=== PATIENT | female | born 1945 | race Caucasian/White ===

== ENCOUNTER 2018-08-12 22:14 | Inpatient (IN) | payer MEDICARE, OTHER ==
[~2018-08-12] VITALS: Ht 160 cm; Wt 96.6 kg
[2018-08-12 22:17] VITALS: BP 143/77
[2018-08-12] MEDS ORDERED: LEXAPRO20 MG PO (22:44)
[2018-08-12] MEDS ORDERED: COZAAR 25 MG TA25 M1 PO (22:47)
[2018-08-12 22:48] LABS: HEMATOCRIT 39.9 % (37.0-47.0); HEMOGLOBIN 13.1 gm/dL (12.0-15.0); MCH 27.4 pg (26.0-34.0); MCHC 32.9 g/dL (28.0-37.0); MCV 83.2 fL (80.0-100.0); MPV 7.9 fl. (7.2-11.1); NUCLEATED RBCS 0 /100WBC; PLATELET COUNT* 215 thou/uL (150-400); RBC 4.79 mil/uL (4.20-5.00); RDW-CV 14.6 % (10.5-14.5); WBC 2.8 thou/uL (4.0-11.0)
[2018-08-12] MEDS ORDERED: PROTONIX40 M1 PO (22:48)
[2018-08-12] MEDS ORDERED: PROVIGIL 200 M200 MG PO (22:48)
[2018-08-12] MEDS ORDERED: SYNTHROID200 MCG PO (22:49)
[2018-08-12] MEDS ORDERED: MAXZIDE-25 MG1 EACH PO (22:50)
[2018-08-12] MEDS ORDERED: VITAMIN D5000 UNIT PO (22:50)
[2018-08-12 22:57] LABS: APTT 40.2 Seconds (25.0-31.3); INR 1.1; PROTIME 11.4 Seconds (9.20-11.50)
[2018-08-12 23:17] LABS: ANION GAP 14 mmol/L (7-16); BUN 32 mg/dL (7-18); CHLORIDE 103 mmol/L (98-107); CO2 25 mmol/L (21-32); SODIUM 142 mmol/L (136-145)
[2018-08-12 23:18] LABS: CALCIUM 8.9 mg/dL (8.5-10.1); CREATININE 1.9 mg/dL (0.6-1.3); GLUCOSE 204 mg/dL (70-99)
[2018-08-12 23:19] LABS: BE -1.2 mmol/L (-2 to +3); HCO3 23.2 mmol/L (22.0-26.0); PCO2 37.9 mmHg (35.0-45.0); pH 7.405 (7.340-7.450)
[2018-08-12 23:22] LABS: PO2 267.1 mmHg (75.0-100.0)
[2018-08-12 23:26] LABS: ALKALINE PHOSPHATASE 81 U/L (46-116); SGOT 27 U/L (15-37); TOTAL BILIRUBIN 0.4 mg/dL (<0.1-1.0)
[2018-08-12 23:27] LABS: ALBUMIN 3.9 g/dL (3.4-5.0)
[2018-08-12 23:35] LABS: SGPT 28 U/L (30-65)
[2018-08-13] VITALS (12 sets, daily range): BP systolic 85–113; BP diastolic 32–60
[2018-08-13 00:04] LABS: NT-PRO BRAIN NAT PEPTIDE 392 pg/mL (<300); TROPONIN-I LEVEL <0.06 ng/mL (<0.06)
[2018-08-13 00:22] LABS: ABSOLUTE LYMPHOCYTES 2.2 thou/uL (0.8-5.3); ABSOLUTE MONOCYTES 0.1 thou/uL (0.0-1.2); ABSOLUTE NEUTROPHILS 0.6 thou/uL (1.6-8.1); ANISOCYTOSIS Occasional; ATYPICAL LYMPHS 2 %; HYPOCHROMASIA 1+; PLATELET ESTIMATE ADEQUATE; TOXIC GRANULATION 1+
[2018-08-13 00:28] LABS: CK-MB MASS 2.6 ng/mL (<0.5-3.6)
--- NOTE | 2018-08-13 00:30 | NUR ---
PATIENT ABLE TO FOLLOW VERBAL COMMANDS. ABLE TO RECOGNIZE FAMILY IN ROOM AND STATE NAMES. GOES FROM BEING ABLE TO SPEAK NAMES CLEARLY TO WORD SALAD. LEGS ALSO NOTED BEING VERY RESTLESS
--- NOTE | 2018-08-13 05:28 | NUR ---
PT ARRIVED TO ICU AT 0330 FROM ED POST SEIZURE, CODE STROKE. PT TAKEN TO RADIOLOGY AT 0330 FOR VQ SCAN AND RETURNED TO ICU AT 0400. PT'S DAUGHTER AT BEDSIDE TO PROVIDE INFORMATION. PT ALERT AND ORIENTED TO PERSON, PLACE AND SITUATION. PT ANSWERS ARPPORIATELY, MOVES ALL EXTREMITIES EQUALLY. NO FACIAL DROOPING OR SLURRED SPEECH. PT DENIES NUMBNESS OR TINGLING. NO LOSS OF SENSATION. PUPILS EQUAL AND REACTIVE, NO BLURRED OR DOUBLE VISION. PT HAVING APHASIA AT TIMES. DR MCLEOD NOTIFIED OF MRI MRA RESULTS AT 0430. PT TO REMAIN NPO UNTIL CLEARED BY SPEECH.
--- NOTE | 2018-08-13 10:28 | NUR ---
PT ADMITTED FROM ER WITH HYPOGLYCEMIA. PT VERY DROWSEY. IVF INFUSING. CHRONIC AFIB ON HEART MONITOR. FERNANDEZ CATHETER PLACED. WILL MONITOR CLOSELY.
--- NOTE | 2018-08-13 15:40 | EKG ---
[place] [address] ELECTROCARDIOGRAM REPORT Name: JERRYXENIA KAELYN Room: [address] ADM IN M.R.#: [id number] Admission: 08/13/18 Attend Phys: Jeffrey Aguilar Discharge: Date of : 49 Report #: [id number] THIS REPORT FOR: //name// [facility] ED Test Date: 2018-08-12 Test Time: 22:24:16 Pat Name: XENIA EDWARDS Department: Room: [facility] Gender: F Vice President Regulatory: LORENZO : 1945 Requested By: Oswald Waters Order Number: [id number] MD: Clark Harrison Measurements Intervals [place] Rate: 97 P: 81 [place]: 194 QRS: -91 QRSD: 155 T: -9 QT: 391 QTc: 497 Interpretive Statements 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
--- NOTE | 2018-08-13 17:12 | NUR ---
PT CARE ASSMED AFTER REPORT. SR/BBB ON MONITOR. NIH Q4H. PT WITH DYSPHAGIA. GETS FRUSTRATED WHEN SHE CAN NOT FIND THE RIGHT WORDS. SEEN BY SPEECH THERAPY AND PT PASSED SWALLOW STUDY. HEART HEALTHY DIET ORDERED PER DR WHITE. UP WITH ASSIST TO BSC. NO WEAKNESS OR FACIAL DROOP NOTED. DENIES PAIN. PROGRESSING TOWARDS SOME GOALS.
[2018-08-13 22:04] LABS: URINE BLOOD NEGATIVE (Negative); URINE CLARITY CLEAR; URINE COLOR YELLOW; URINE GLUCOSE-RANDOM NEGATIVE (Negative); URINE KETONES NEGATIVE (Negative); URINE LEUKOCYTES-REFLEX TRACE (Negative); URINE NITRITE-REFLEX NEGATIVE (Negative); URINE PROTEIN NEGATIVE (Negative); URINE SPECIFIC GRAVITY 1.025 (1.005-1.030); URINE UROBILINOGEN 0.2 E.U./dl (0.2-1.0)
[2018-08-13 22:07] LABS: ICTOTEST (BILI CONFIRMATORY) Negative (Negative); URINE BILIRUBIN 1+ (Negative); URINE POTASSIUM-RANDOM 33.9 mmol/L
[2018-08-13 22:11] LABS: AMP/METHAMP Negative (Negative); BARBITURATES Negative (Negative); BENZODIAZEPINES Negative (Negative); COCAINE Negative (Negative); METHADONE Negative (Negative); OPIATES Negative (Negative); PCP Negative (Negative); THC Negative (Negative)
[2018-08-13 22:20] LABS: BACTERIA-REFLEX 1-9 Few /HPF (None Seen); SQUAMOUS >10 Many /LPF (0-3); URINE WBC-REFLEX 0-5 Rare /HPF (0-5)
[2018-08-13 22:21] LABS: CASTS None Seen /LPF (None Seen); MUCUS None Seen strn/LPF (None Seen)
[2018-08-13 22:22] LABS: CRYSTALS None Seen /LPF (None Seen); URINE RBC None Seen /HPF (0-2)
[2018-08-14] VITALS (7 sets, daily range): BP systolic 93–124; BP diastolic 36–64
--- NOTE | 2018-08-14 04:49 | NUR ---
PT AAOX4 RESP REG AND UNLABORED SKIN W/D NO ACUTE DISTRESS NOTED. NIH 3. PT NOTED THAT RIGHT ARM AND LEG HAVE DECREASED SENSATION. NO DRIFT NOTED. NO DECREASED MOVEMENT. DYSPHAGIA NOTED. AT TIMES WORSE THAN OTHERS PT HAS HAD A PEACEFUL NIHGT, HOWEVER IT IS NOTED THAT PT O2 SAT DECREASES WHILE SLEEPING, O2 INCREASED TO 3L BNC. VSS AND NO ACUTE CHANGES DURING SHIFT WILL CONTINUE TO MONITOR
[2018-08-14 04:52] LABS: CALCIUM 7.7 mg/dL (8.5-10.1); CREATININE 1.2 mg/dL (0.6-1.3); MAGNESIUM 2.4 mg/dL (1.8-2.4); POTASSIUM 4.1 mmol/L (3.5-5.1)
[2018-08-14 04:54] LABS: CHOLESTEROL 114 mg/dL (<200); HDL CHOLESTEROL 50 mg/dL (>40); LDL CHOLESTEROL 49 mg/dL (<100); TC:HDL 2.3 Ratio (Not establshd); TRIGLYCERIDE 77 mg/dL (<150); VLDL 15 mg/dL (<40)
[2018-08-14 04:55] LABS: SERUM ASSESSMENT CLEAR
--- NOTE | 2018-08-14 14:48 | 2DMMODE ---
[place] [address] 2 D/M-MODE ECHOCARDIOGRAM Name: XENIA EDWARDS Room: [address] ADM IN .R.#: [id number] Admission: 08/13/18 Attend Phys: Kevin Rico Discharge: Date of : 49 Date of Service: 08/14/18 1447 Report #: [id number] THIS REPORT FOR: //name// APPROVED REPORT Study performed: 08/14/2018 09:17:13 EXAM: Comprehensive 2D, Doppler, and color-flow Echocardiogram Patient Location: Bedside BSA: 1.99 HR: 71 bpm BP: 119/63 mmHg Other Information Study Quality: Technically Limited Indications CVA/TIA Echo Enhancing Agent Indication: Rule out Shunt Agent(s) / Amount(s) Used: Agitated Saline cc 2D Dimensions IVSd: 11.07 (7-11mm) LVOT Diam: 19.46 (18-24mm) LVDd: 38.83 mm PWd: 10.98 (7-11mm) Ascending Ao: 32.24 (22-36mm) LVDs: 26.51 (25-40mm) Aortic Root: 29.12 mm Volumes Left Atrial Volume (Systole) LA ESV Index: 17.90 mL/m2 Aortic Valve AoV Peak Brad.: 1.27 m/s AO Peak Gr.: 6.46 mmHg LVOT Max P.66 mmHg AO Mean Gr.: 3.17 mmHg LVOT Mean P.43 mmHg LVOT Max V: 0.82 m/s AO V2 VTI: 27.84 cm LVOT Mean V: 0.56 m/s DANICA (VTI): 1.79 cm2 LVOT V1 VTI: 16.73 cm Mitral Valve E/A Ratio: 1.16 [place] [address] 2 D/M-MODE ECHOCARDIOGRAM Name: XENIA EDWARDS Room: [address] IN .R.#: [id number] Admission: 08/13/18 Attend Phys: Kevin Rico Discharge: Date of : 49 Date of Service: 08/14/18 1447 Report #: [id number] MV Decel. Time: 192.69 ms MV E Max Brad.: 1.08 m/s MV PHT: 55.88 ms MVA (PHT): 3.94 cm2 TDI E/Lateral E': 10.80 E/Medial E': 9.82 Medial E' Brad.: 0.11 m/s Lateral E' Brad.: 0.10 m/s Pulmonary Valve PV Peak Brad.: 0.91 m/s PV Peak Gr.: 3.31 mmHg Tricuspid Valve RAP Estimate: 5.00 mmHg TR Peak Gr.: 14.99 mmHg RVSP: 19.99 mmHg PA Pressure: 19.99 mmHg Left Ventricle The left ventricle is normal size. There is normal LV segmental wall motion. There is normal left ventricular wall thickness. Left ventricular systolic function is normal. The left ventricular ejection fraction is within the normal range. LVEF is 60-65%. Right Ventricle The right ventricle is normal size. The right ventricular systolic function is normal. Atria The left atrium size is normal. Injection of bubbles documented no interatrial shunt. The right atrium size is normal. Aortic Valve The aortic valve is normal in structure. No aortic regurgitation is present. There is no aortic valvular stenosis. Mitral Valve The mitral valve is normal in structure. There is no mitral valve regurgitation noted. No evidence of mitral valve stenosis. Tricuspid Valve The tricuspid valve is normal in structure. Trace tricuspid regurgitation. Pulmonic Valve Pulmonic valve is not well visualized. There [place] [address] 2 D/M-MODE ECHOCARDIOGRAM Name: XENIA EDWARDS Room: [address] IN [facility].#: [id number] Admission: 08/13/18 Attend Phys: Kevin Rico Discharge: Date of : 49 Date of Service: 08/14/18 1447 Report #: [id number] regurgitation. Great Vessels The aortic root is normal in size. IVC is normal in size and collapses >50% with inspiration. Pericardium There is no pericardial effusion. <Conclusion> LVEF is 60-65%. Injection of bubbles documented no interatrial shunt. <ELECTRONICALLY SIGNED> By: Ozzie Eaton MD, [facility] 08/14/18 1447 144 144 Ozzie Eaton MD, FACC /INF
--- NOTE | 2018-08-14 17:19 | NUR ---
UP IN ROOM DENIES DISTTRESS CO COUGH WITH VAGAL RESPONSE. DYSPHAGIA CAUSING DISTRESS.
--- NOTE | 2018-08-14 17:40 | NUR ---
REPORT GIVEN TO GOLD TRANSFERING TO RM 204.
--- NOTE | 2018-08-14 17:40 | NUR ---
RECEIVED CONSULT FOR POSSIBLE REHAB ADMISSION. CONSULT HAS BEEN ACKNOWLEDGED BY VIOLET LIAISON DALIA PATEL. PATIENT ADMITTED WITH STROKE. NEUROLOGY FOLLOWING STROKE CONTINUING TO EVOLVE. PATIENT STILL IN ICU. PT/OT/ST EVALUATED PATIENT, HAS REHAB NEEDS. WILL FOLLOW ALONG TO SEE HOW PATIENT PROGRESSES ONCE MEDICALLY STABLE TO DETERMINE IF QUALIFIES FOR ACUTE REHAB. THANK YOU FOR THIS CONSULT.
--- NOTE | 2018-08-14 18:35 | NUR ---
PT TRANSFERRED TO ROOM 204 VIA WHEELCHAIR AND NURSING STAFF FROM ICU AT APPROXIMATELY 1800. REPORT RECEIVED FROM RADHA ACHARYA. PT ORIENTED TO ROOM AND CALL LIGHT. THIS RN AGREES WITH PREVIOUS INTERNAL CONTROLS CONSULTANT. PT SITTING UP IN BED HAVING DINNER. FAMILY AT BEDSIDE. PT A&0X4, DENIES ANY PAIN OR SHORTNESS OF BREATH AT THIS TIME. TRACING SR ON THE LATHE SETUP OPERATOR. ON RA SAT UPPER 90'S. PT UP WITH 1 ASSIST. MEDICATIONS PER NOV. PT REPOSITIONS SELF. HOURLY ROUNDING OBSERVED. BED IN LOW POSITION. CALL LIGHT WITHIN REACH. WILL CONTINUE PLAN OF CARE.
[2018-08-15] VITALS: BP 135/56
--- NOTE | 2018-08-15 01:15 | NUR ---
ASSUMED PT CARE AT 1930. ASSESSMENT COMPLETED CHARTED. ABLE TO MAKE NEEDS KNOWN. [facility] QSHIFT. PT UP WITH STANDBY. NO C/O PAIN OR DISCOMFORT. HAVING A HARD TIME THINKING OF THE WORDS TO SAY R/T STROKE. WILL CONTINUE TO MONITOR.
[2018-08-15 04:00] VITALS: BP 124/71
[2018-08-15 04:49] LABS: ABSOLUTE LYMPHOCYTES 0.4 thou/uL (0.8-5.3); ABSOLUTE MONOCYTES 0.1 thou/uL (0.0-1.2); ABSOLUTE NEUTROPHILS 2.1 thou/uL (1.6-8.1); BASOPHILS 0.1 %; HEMATOCRIT 33.5 % (37.0-47.0); HEMOGLOBIN 11.4 gm/dL (12.0-15.0); LYMPHOCYTES 16.8 %; MCH 27.8 pg (26.0-34.0); MCHC 33.9 g/dL (28.0-37.0); MCV 82.2 fL (80.0-100.0); MONOCYTES 2.8 %; MPV 8.5 fl. (7.2-11.1); NUCLEATED RBCS 0 /100WBC; PLATELET COUNT* 149 thou/uL (150-400); POLYS 80.3 %; RBC 4.08 mil/uL (4.20-5.00); RDW-CV 14.7 % (10.5-14.5); WBC 2.6 thou/uL (4.0-11.0)
--- NOTE | 2018-08-15 07:58 | CON ---
[address] [address] CONSULTATION Name: XENIA EDWARDS Room: [address] IN M.R.#: [id number] Admission: 08/13/18 Attend Phys: Jeffrey Aguilar Discharge: Date of : 49 Report #: [id number] THIS REPORT FOR: //name// CC: Dr. Aaron Guerra MD DATE OF SERVICE: 08/14/2018 PULMONARY CONSULTATION Location: She is located in the ICU bed 6. She may be transferred up to PCU, but I saw her in ICU 6. ATTENDING PHYSICIAN: Dr. Riggs. INDICATION FOR CONSULTATION: Cough, shortness of air, interstitial lung disease. HISTORY OF PRESENT ILLNESS: The patient is a 73-year-old female, prior smoker with multiple medical problems. She was admitted to the hospital yesterday because of a seizure, appeared to involve her right arm. She had a left-sided MCA stroke and now, she has expressive aphasia. She has been coughing for about the last 6 months, it has been a dry cough. Dr. Guerra has worked her up. We are awaiting records from [facility]. There is a dry cough that occurs day and night. She has been on antireflux regimen. She denies any sinus drainage. I do not think she has had a bronchoscopy with brushings or washings. She has not had an open lung biopsy as far as I can ascertain. She has some mild interstitial lung disease on her chest x-ray and CAT scan of her chest. She is a prior smoker of 20 pack years, but she quit, I believe in 2007. History is a little bit difficult to obtain because of her expressive aphasia and she was somewhat frustrated with this. PAST MEDICAL HISTORY: She has a history of hypertension. She has a history of seizure and hyperlipidemia. She does take multiple psychiatric medicines for unknown etiology. No history of COPD. There is a history of obstructive sleep apnea, which was in the mild range on a sleep study interpreted by Dr. Kam Bain from ENT on 10/27/2003 at [facility]. She had 50 total apnea and hypopneas. Her apnea hypopnea index was 7 events per hour. She had some mild O2 desaturation down to 80% and she was placed on CPAP at 9 cm and seemed to have improved. She also had some restless leg syndrome. There is no mention of narcolepsy at that time, although there is a questionable history of narcolepsy in the past, at least [place] [address] CONSULTATION Name: XENIA EDWARDS Room: [address] IN M.R.#: [id number] Admission: 08/13/18 Attend Phys: Jeffrey Aguilar Discharge: Date of : 49 Report #: [id number] ALLERGIES: She has no known medical allergies. CURRENT MEDICATIONS: At this time includes Solu-Medrol 40 mg IV q. 8 hours, Pepcid 20 mg b.i.d., azithromycin 250 mg daily, Keppra 500 mg p.o. b.i.d., Lovenox 30 mg daily, atorvastatin 40 mg daily. She is on some DuoNeb treatments 4 times a day and also Maxzide 1 tablet daily. Of note, she is on modafinil or Provigil 200 mg once daily in the morning. Also, on losartan 50 mg daily for hypertension, citalopram 20 mg daily, also on ceftriaxone 1 g daily, aspirin 325 mg daily and levothyroxine 0.2 mg daily. FAMILY HISTORY: Negative for premature cardiopulmonary disease. SOCIAL HISTORY: She lives by herself. She has a supportive daughter who is helpful in her care. She denies drinking alcohol or have any illicit drug use. She has a 20-qexr-rybp history of smoking and again, I believe she quit smoking in 2007, although that date is somewhat in question because of her expressive aphasia. REVIEW OF SYSTEMS: A 14-point review of systems reviewed and negative except for pertinent positives noted as above. PHYSICAL EXAMINATION: GENERAL: A 73-year-old female who is alert and oriented. She has difficulty talking to me again because of her expressive aphasia and she is searching for words, which frustrates her. She does have a dry cough throughout the exam. VITAL SIGNS: In the intensive care unit, blood pressure is 130/53 without being on any pressors, heart rate 72, respirations are 16-20 and nonlabored and temperature is afebrile. She is 5 feet 4 inches tall, weight is 97 kilograms, BMI is 38, saturation on 4 liters was 97%. HEENT: Unremarkable. Pharynx is clear. Sinuses nontender. NECK: Supple without nodes. CHEST: Reveals a few bibasilar crackles, left greater than right. No expiratory wheeze noted. CARDIOVASCULAR: Shows regular rate and rhythm with a heart rate of 72. ABDOMEN: Soft, obese without masses or megaly. EXTREMITIES: No cyanosis, clubbing or edema. NEUROLOGIC: She is dysarthric and has an expressive aphasia. Tongue thrust is good. She can cough and protect her airway and she has minimal right arm weakness. Otherwise, neurologic exam is nonfocal. She moves all extremities well to exam. LABORATORY DATA: From yesterday, hemoglobin was 13, white count is 2800 and she has 76% lymphocytes and absolute neutrophils are low at 600. Today, sodium is 139, potassium is 4.1, bicarbonate is 25, BUN is 25, creatinine is 1.2, GFR is 44, calcium 7.7, magnesium is 2.4. LFT[place] [address] CONSULTATION Name: JERRYXENIANathan ART Room: [address] IN ..#: [id number] Admission: 08/13/18 Attend Phys: Jeffrey Aguilar Discharge: Date of : 49 Report #: [id number] panel was unremarkable and vitamin B12 was 921. Urine tox screen was negative and coags were within normal limits. Chest x-ray and CT of the chest shows minimal lower lobe interstitial infiltrates. I am not as impressed as the radiologist was with the findings on the CAT scan. She has some lower lobe interstitial infiltrates. There is no septal thickening. There is no honeycombing to my review. Heart size was normal. No pulmonary artery hypertension noted at least on the CAT scan. Otherwise, the upper lung fowler appear relatively normal. IMPRESSION: Cough, etiology unclear, may have some early interstitial lung disease. Again, most likely idiopathic, could be usual interstitial pneumonia. I do not think it is drug related. No definite evidence of esophageal reflux. No sinus drainage noted. She is a remote smoker. 1. Seizures with stroke, left-sided middle cerebral artery noted on MRI of the brain, appears to have expressive aphasia at this time. 2. Hypertension. 3. Sleep disordered breathing and mild obstructive sleep apnea, could also have restless leg syndrome, at least has daytime hypersomnolence. I am not sure she has narcolepsy or not. PLAN: We will treat with some oral bronchodilators, IV steroids, have just been added with some Tessalon Perles and montelukast and see if we can suppress her cough a little bit. At some point in time, she may need outpatient fiberoptic bronchoscopy for persistent lower lobe infiltrates. Also, further workup as an outpatient would include full PFTs. Possibly room air exercise oximetry and again, bronchoscopy with possible transbronchial biopsy. I do not think she warrants an open lung biopsy at this time. We will continue with steroids, probably needs 2-3 weeks with a taper, so we can get her cough under control. May need a repeat sleep study, was checked with Dr. Guerra sooner. The last sleep study was done the one I find at [facility] was in 2003 and she may have had one sooner since then, but certainly, a repeat sleep study and possibly an MSLT may be indicated to see if she truly has narcolepsy or just some daytime hypersomnolence. We will keep on with Provigil at this time. Add oral and inhaled bronchodilators and see if can keep her cough under control. Thanks again for allowing us to participate in this lady's care. We will follow up along with you while she is in the hospital. <ELECTRONICALLY SIGNED> By: Cyrus Valdes MD 08/15/18 0758 1028 [id number] Valdes MD /liudmila
[2018-08-15 08:00] VITALS: BP 136/52
[2018-08-15 08:09] LABS: GLYCOHEMOGLOBIN (HGB A1C) 5.6 % (4.8-5.6)
--- NOTE | 2018-08-15 10:11 | NUR ---
Mental Health Coordinator Note: Met with patient and daughter Roderick this am. Discussed stroke program, provided emotional support, patient able to express self, does have aphasia. Patient plans to go to in patient rehab if qualifies. Agreed to [facility] Stroke Navigation post acute discharge.
--- NOTE | 2018-08-15 11:15 | NUR ---
ASSUMED CARE OF PT AT 0730. PT RESTING IN BED WAITING FOR BREAKFAST. PT A&0X4, DENIES ANY PAIN OR SHORTNESS OF BREATH. PT GETS FRUSTRATED WHEN UNABLE TO THINK OF WORDS, DYSARTHRIA NOTED. PT TRACING SB ON THE TELEMARKETER SUPERVISOR. PT ON RA SAT UPPER 90'S. PT WEARS 2L NC AT NOC. PT UP WITH 1 ASSIST. NIH COMPLETED. PT SCORING 3. REFER TO RESULTS. PT GOAL FOR TODAY IS REHAB CONSULT, PT, OT AND ST, AND INCREASE ACTIVITY. AM ASSESSMENT CHARTED. MEDICATIONS PER NOV. PT REPOSITIONS SELF WITH REMINDERS. HOURLY ROUNDING OBSERVED. BED IN LOW POSITION. CALL LIGHT WITHIN REACH. FALL PRECAUTIONS IN PLACE. WILL CONTINUE PLAN OF CARE.
--- NOTE | 2018-08-15 11:46 | NUR ---
Pt is A&O. Minor difficulty with word finding. Dtr in room at bedside. Pt is normally active and independent. Pt recently moved in to her own apartment at [facility]. Pt is normally able to prepare her meals, clean and drive. Pt has a cpap. No hx of HH or SNF. Acute rehab following Pt, Pt wants to dc to acute rehab at discharge. Following.
[2018-08-15 12:00] VITALS: BP 102/51
[2018-08-15 16:33] VITALS: BP 115/44
--- NOTE | 2018-08-15 18:37 | NUR ---
PT PROGRESSING TOWARDS GOALS. PT WORKED WITH PT AND OT TODAY- TOLERATED WELL. PT SHOWERED WITH ASSIST OF OT. REHAB CONSULT IN PLACE- PROBABLE DISCHARGE TO REHAB TOMORROW 08/16. CONTINUES TO HAVE EXPRESSIVE APHASIA AND GETS FRUSTRATED AT TIMES. CONTINUES TO TRACE SB/SR ON THE MIXING MACHINE OPERATOR. ON RA SAT UPPER 90'S. DENIES ANY PAIN OR SHORTNESS OF BREATH. PT UP WITH 1 ASSIST TO BATHROOM. UNSTEADY AT TIMES. PT HAD BLOODY NOSE THIS EVENING- RELIEVED WITH COLD COMPRESS AND ICE PACK. PT HAS COUGH THAT HAS WORSENED THROUGHOUT AFTERNOON. PT BROTHER CAME OUT TO DESK AT APPROXIMATELY 1530 AND STATED PT HAD SEIZURE AFTER COUGHING. NURSE ENTERED ROOM, PT SITTING IN THE CHAIR STATING SHE HAD A COUGHING SPELL. PT BROTHER SAID SEIZURE ACTIVITY LASTED 4 SECONDS AFTER PT COUGHED. NURSING DID NOT WITNESS. WILL CONTINUE TO MONITOR CLOSELY. DR PETERSON HERE THIS AFTERNOON AND ORDERS RECEIVED TO ANISA NAVARRO. MEDICAITONS PER NOV. PT REPOSITIONS SELF WITH REMINDERS. HOURLY ROUNDING OBSERVED. BED IN LOW POSITION. BED ALARM IN PLACE. FALL PRECAUTIONS IN PLACE. CALL LIGHT WITHIN REACH. WILL CONTINUE PLAN OF CARE.
[2018-08-15 20:20] VITALS: BP 111/44
[2018-08-16] VITALS: BP 99/42
[2018-08-16 04:00] VITALS: BP 108/48
--- NOTE | 2018-08-16 05:20 | NUR ---
PT CARE ASUMED AT 1930. SAT MAINTAINED IN RA. CONNECTED TO O2 AT 2L BECAUSE OF SLEEP APNEA. CALL LIGHT WITHIN REACH AND BED IN LOW POSITION. PT HAD HEMOPTYSIS 1 EPISODE. HAD EXCESSIVE COUGHING, MEDICATION GIVEN PER EMAR. HOURLY ROUNDING DONE FOR PT SAFETY. DENIES ANY CHEST PAIN AND SOB.
[2018-08-16 09:00] VITALS: BP 131/49
[2018-08-16 12:17] VITALS: BP 116/73
--- NOTE | 2018-08-16 12:53 | NUR ---
ASSUMED PT CARE AT 0700 PT IS ALERT AND ORIENTED X 4 PT DENIES PAIN OR SOA ON RA, PT IS UP SBA PT IS NOT A FALL RISK, PT IS SR 1ST ON THE MONITOR, PT STABLE TO DISCAHRGE TO REHAB WHICH HOSPITALIST HAS CLEARED, PT IS PLESANT AND COOPERATIVE WILL CONTINUE TO MONITOR
[2018-08-16] MEDS ORDERED: SINGULAIR 10 MG10 M1 PO (13:53)
[2018-08-16] MEDS ORDERED: ALBUTEROL SULFAT2 MG PO (13:53)
[2018-08-16] MEDS ORDERED: IPRAT-ALBUT 0.5-3 ML INH (13:53)
[2018-08-16] MEDS ORDERED: BENZONATATE100 MG PO (13:53)
[2018-08-16] MEDS ORDERED: LEVAQUIN 500 M500 M2 PO (13:53)
[2018-08-16] MEDS ORDERED: ROBITUSSIN AC Liquid PO (13:53)
[2018-08-16] MEDS ORDERED: ATORVASTATIN CA40 MG PO (13:53)
[2018-08-16] MEDS ORDERED: ASA5UEC PO (13:53)
[2018-08-16] MEDS ORDERED: PREDNISONE 10 M10 MG PO (13:53)
[2018-08-16] MEDS ORDERED: MUCINEX600 MG PO (13:53)
[2018-08-16 14:35] VITALS: BP 116/73
--- NOTE | 2018-08-16 15:21 | NUR ---
Pt discharging to acute rehab today.
[2018-08-16 16:08] VITALS: BP 113/46
--- NOTE | 2018-08-18 10:58 | CON ---
[address] [address] CONSULTATION Name: XENIA EDWARDS Room: [address] IN M.R.#: [id number] Admission: 08/13/18 Attend Phys: Gilbert Aguilar Discharge: 08/16/18 Date of : 49 Report #: [id number] THIS REPORT FOR: //name// CC: Kevin Rico Naman Morgangilbert DATE OF SERVICE: 08/13/2018 HISTORY OF PRESENT ILLNESS: This is a 73-year-old female patient who was evaluated by me multiple times since last night when I was called by Emergency Room physician, Dr. Waters, and I had multiple conversations with the patient's daughter and the nurses looking after this patient. The history I get from the daughter and the Emergency Room physician, Dr. Waters, is that the patient was recently admitted to [facility]. The way I understood from the patient's daughter, the patient had grand mal seizure. It is not clear whether there was any focality that time or not. She was taken to [facility]. According to daughter, they did extensive workup in this patient. I do not have any record from [facility] and we tried to get it last night and we were not able to get that, but the daughter does indicate that the patient did have an MRI. She does not know if she had an EEG. They did not determine any cause for her seizures. The way I understand from her, the diagnosis was not clear for this late onset seizure. Today, this patient was moving. About 8:00 the daughter came to this patient's new place. The patient was fine that time. Somewhere between 8:00 and 9:30, the patient indicated that she was not feeling well. It was not clear why she was not feeling well. She wanted to go outside and she did. Then, she started sweating and later on had a grand mal seizure. Initially, she became unresponsive with this grand mal seizure, but subsequently she became more responsive. Description is typical for a grand mal seizure. I tried to see if the seizure started with some focality and the daughter was not able to tell for sure whether there was any focality there or not. She was confused. As I understand from Dr. Waters, she came to the emergency room and she was not saturating well. Her oxygen saturation was only 88%. She was yelling to the EMS when they went there that she cannot breathe and from all indication, it looks like she had pretty significant respiratory difficulty that time. She was brought to Emergency Room and was initially worked up by Dr. Waters. He did a CT scan of the head in this patient after stabilizing her breathing. As I understand from him, the CT got delayed because the patient was hypoxic. After CT report, I was called to do a Neurology consult. I talked to Dr. Waters on the phone and it looks like the patient was [place] [address] CONSULTATION Name: XENIA EDWARDS Room: [address] M.R.#: [id number] Admission: 08/13/18 Attend Phys: Gilbert Aguilar Discharge: 08/16/18 Date of : 49 Report #: [id number] was improving. Because of a very recent seizure, his impression was that she was postictal from her seizure, especially because she had a grand mal seizure just before coming to the emergency room and it looks like she was also hypoxic. I suggested further workup in this patient. Workup was difficult because her creatinine was 1.9 and BUN was 32 and they were both elevated. Because of that, CT angiogram of the head and neck was awarded and we proceeded with MRI of the brain and MRA of the head and neck. That was completed somewhere around 2:30 and I looked at the films and to me it looked like the patient had a CVA in the left cerebral hemisphere, but the vessels were patent in this patient. The official report came this morning and they have pretty much the same impression. REVIEW OF SYSTEMS: Indicate that this patient was hypotensive. There was virtually no reactive hypertension in this patient secondary to stroke and in fact her blood pressure continued to be low. She was also hypoxic, which probably aggravated her stroke symptoms. She has a history of seizures. She takes multiple psychiatric medications and I need to talk to the patient's daughter again more about that. A 14-point review of system was carried out and it was mostly positive for a seizure recently for which she was in the [facility] and recurrence of the same symptoms on the day of admission. The symptoms were very similar, but apparently the initial workup was negative. FAMILY HISTORY: Unremarkable. SOCIAL HISTORY: She has a very supporting daughter and I talked to her in great detail and had numerous conversations with her. PHYSICAL EXAMINATION: Indicate that I have seen her multiple times. Virtually, all the examination she has been alert. She is responsive. She can comprehend most of the things, but her expression is very poor. She will start with some word but then she will get confused and the word will not come out. She had very strong expressive aphasia. That makes the rest of the examinations pretty difficult, but I cannot have a good examination of her hemianopsia because of that. I think she can move both sides of the face and I did not see any gross facial palsy. She moves both upper and lower extremities. I tried to do the position sense in this patient. She does not understand the instruction. I did not document any atrial fibrillation. She did have respiratory difficulty, which is much better than what she came in. IMPRESSION: 1. Left hemispheric cerebrovascular accident. The patient's presentation is very unusual. She presented with a grand mal seizure a month ago for which the workup was negative and another grand mal seizure on the day of admission. The symptom of the grand mal seizures started anywhere between 8:00-9:30 p.m. on the day of admission. Because of the recent history of seizure for which workup was negative and the patient having the exact same symptom, it was not possible to tell how much of her symptoms were secondary to postictal period [place] [address] CONSULTATION Name: JERRYXENIA Room: [address] IN [facility].#: [id number] Admission: 08/13/18 Attend Phys: Gilbert Aguilar Discharge: 08/16/18 Date of : 49 Report #: [id number] any is because of stroke or even if she had a stroke. Situation became clear only after the MRI. Furthermore, we cannot be certain that she did not have a stroke a month ago because we do not have her prior records and even if the MRI is negative, MRI can sometime be negative in the stroke since it was not possible to tell how much symptoms are because of the patient's seizures and how much if any is because of stroke and the patient could have had a stroke a month ago when she was in [facility]. ER doctor did not give TPA and that is reasonable. When I saw the patient, she was outside the TPA window, but I also wanted to make sure that the patient is not any intervention candidate. So we did do workup in a hurry and the patient was not any intervention candidate. Therefore, as far as acute management is concerned, this patient because of the above circumstances did not qualify for TPA or for any other acute intervention can be done. Main emphasis should be to more thoroughly search for any cause for her stroke, so that secondary stroke prophylaxis can be initiated. 2. Hypoxia at presentation. That is of unknown etiology, but any hypoxia to the stroke penumbra carries bad prognosis, but stroke penumbra is very sensitive to any hypoxia. 3. Virtually no reactive hypertension and in fact the patient's blood pressure continued to be very low and we have to increase the blood pressure by giving her a lot of fluids. Lack of reactive hypertension is another bad prognostic sign for recovery. Therefore, it looks like that unfortunately, this patient does have multiple other bad prognostic sign, especially hypoxia at presentation, virtually no reactive hypertension and she also had a seizure at onset and seizure prior to this episode about a month ago and you may have to assume that she may have had a small stroke even that time which was missed by the workup. 4. History of sleep apnea and narcolepsy that need to be further addressed later on. 5. Any underlying etiology which can cause hypotension need to be excluded. RECOMMENDATIONS: 1. The patient was admitted to ICU and I think we need to continue ICU management, but to make sure that oxygen saturation is maintained and we can increase the blood pressure as much as we can. I thought about giving this patient vasopressor, but typically that is not what is done in the stroke and typically the aim is to keep her blood pressure high by giving her fluid. 2. We were able to get Speech Therapy here today. Nurses called me and indicated that they have cleared her for swallowing. We should continue to feed her. 3. She will need extensive workup to look for any source of embolization from the heart. We will await echo to see if there is any need to do ARIELLE. She will need prolonged monitoring to look for atrial fibrillation, especially because there was seizure at the onset of this stroke and she had another seizure and may have had another stroke a month ago. 4. Her sleep apnea needs to be addressed. It is an independent risk factor for stroke, but combination of sleep apnea and narcolepsy is rare, [place] [address] CONSULTATION Name: JERRYXENIA HALLE Room: [address] [place] .R.#: [id number] Admission: 08/13/18 Attend Phys: Gilbert Aguilar Discharge: 08/16/18 Date of : 49 Report #: [id number] be addressed as an outpatient. I have left [place] and nurses tell me that they got the record from [facility] after I left. We will try to review that. I will review with the nurses sandra and Dr. Decker will take over the service in the morning and she will review, but she just need the whole workup again and looks like she has 2 seizures and we are going to go ahead and give her Keppra and extensively look for any cardioembolic source for her stroke. A total of more than 50 minutes of time was spent taking care of this patient today and last night and majority of that time was spent counseling the patient's daughter on multiple occasions and coordinating her care by talking to multiple other healthcare professionals. <ELECTRONICALLY SIGNED> By: Harry Walker MD 08/18/18 [id number] Walker MD /nt
== END 2018-08-16 16:40 | DRG 64 ==
LOC: M.ERS 22:14 → M.ICU 08-13 00:53 → M.2W 08-13 00:53 → M.TBA-ER 08-13 00:53 → M.2W 08-13 00:53 → M.ICU 08-13 03:06 → M.2W 08-14 17:58
PROVIDERS: Emergency Medicine Emergency Medical Services; Internal Medicine; Internal Medicine Pulmonary Disease; Psychiatry & Neurology Neuromuscular Medicine; ADMIT Internal Medicine
DX: I63.412 Cerebral infarction due to embolism of left middle cerebral artery (principal); N17.0 Acute kidney failure with tubular necrosis; G81.91 Hemiplegia, unspecified affecting right dominant side; D47.02 Systemic mastocytosis; I10 Essential (primary) hypertension; E78.5 Hyperlipidemia, unspecified; G25.81 Restless legs syndrome; G47.33 Obstructive sleep apnea (adult) (pediatric); R47.01 Aphasia; E87.6 Hypokalemia; I73.9 Peripheral vascular disease, unspecified; G47.00 Insomnia, unspecified; J84.89 Other specified interstitial pulmonary diseases; K21.9 Gastro-esophageal reflux disease without esophagitis; F32.9 Major depressive disorder, single episode, unspecified; E89.0 Postprocedural hypothyroidism; Z85.850 Personal history of malignant neoplasm of thyroid; Z98.42 Cataract extraction status, left eye; Z98.41 Cataract extraction status, right eye; Z90.49 Acquired absence of other specified parts of digestive tract; Z87.891 Personal history of nicotine dependence; Z79.82 Long term (current) use of aspirin; Z79.899 Other long term (current) drug therapy

== ENCOUNTER 2018-08-16 14:30 | Inpatient (IN) | payer MEDICARE, OTHER ==
[~2018-08-16] VITALS: Ht 162.6 cm; Wt 96.2 kg
[~2018-08-16 14:30] MED LIST: ALBUTEROL SULFAT2 MG PO; ASA5UEC PO; ATORVASTATIN CA40 MG PO; BENZONATATE100 MG PO; COZAAR 25 MG TA25 M1 PO; IPRAT-ALBUT 0.5-3 ML INH; LEVAQUIN 500 M500 M2 PO; LEXAPRO20 MG PO; MAXZIDE-25 MG1 EACH PO; MUCINEX600 MG PO; PREDNISONE 10 M10 MG PO; PROTONIX40 M1 PO; PROVIGIL 200 M200 MG PO; ROBITUSSIN AC Liquid PO; SINGULAIR 10 MG10 M1 PO; SYNTHROID200 MCG PO; VITAMIN D5000 UNIT PO
[2018-08-16 17:00] VITALS: BP 119/45
--- NOTE | 2018-08-16 18:52 | NUR ---
73 YEAR OLD FEMALE ADMITTED TO ROOM 325 WITH DX OF LEFT MCA CVA. PT ARRIVED IN A WHEELCHAIR FROM ROOM 204 IN THE HOSPITAL. PT TRANSFERRED TO BED WITH STAND BY ASSISTANCE. PT ORIENTED TO ROOM, CALL LIGHT AND BED CONTROLS, INSTRUCTED TO CALL FOR ASSISTANCE BEFORE GETIING UP. ADMISSION HX AND ASSESSMENT COMPLETED. PT STATES HER ONLY RESIDUAL SYMPTOM HAS BEEN SOME WORD FINDING AND APHASIA. NO ACUTE DISTRESS AT THIS TIME.
[2018-08-16 20:17] VITALS: BP 148/71
--- NOTE | 2018-08-16 21:50 | NUR ---
SITTING UP IN BED VISITING WITH A FEMALE VISITOR. PATIENT ASKED FOR MELATONIN. INFORMED PATIENT THAT IT WASN'T ORDERED BUT THE DR. WOULD BE CALLED TO GET THE ORDER. PATIENT COULDN'T UNDERSTAND WHY THE DR. HAD TO BE CALLED JUST FOR HER TO BE ABLE TO TAKE MELATONIN. THE MELATONIN WAS ORDERED AND GIVEN TO THE PATIENT. TOOK MEDICATIONS WHOLE WITH WATER. PATIENT HAD CALMED DOWN BY THE TIME SHE RECEIVED THE MELATONIN AND WAS MUCH MORE PLEASANT. SNACK PROVIDED.
[2018-08-17 04:12] LABS: ABSOLUTE LYMPHOCYTES 1.4 thou/uL (0.8-5.3); ABSOLUTE MONOCYTES 0.7 thou/uL (0.0-1.2); ABSOLUTE NEUTROPHILS 5.3 thou/uL (1.6-8.1); BASOPHILS 0.2 %; EOSINOPHILS 0.1 %; HEMATOCRIT 34.5 % (37.0-47.0); HEMOGLOBIN 11.9 gm/dL (12.0-15.0); LYMPHOCYTES 18.5 %; MCH 27.9 pg (26.0-34.0); MCHC 34.3 g/dL (28.0-37.0); MCV 81.3 fL (80.0-100.0); MONOCYTES 9.1 %; MPV 8.4 fl. (7.2-11.1); NUCLEATED RBCS 0 /100WBC; PLATELET COUNT* 173 thou/uL (150-400); POLYS 72.1 %; RBC 4.25 mil/uL (4.20-5.00); RDW-CV 14.8 % (10.5-14.5); WBC 7.4 thou/uL (4.0-11.0)
[2018-08-17 04:25] LABS: CALCIUM 9.4 mg/dL (8.5-10.1); POTASSIUM 4.4 mmol/L (3.5-5.1)
--- NOTE | 2018-08-17 05:51 | NUR ---
RESTED QUIETLY. NO COMPLAINTS VOICED. HOURLY ROUNDING IN PROGRESS.
[2018-08-17 08:00] VITALS: BP 127/55
[2018-08-17 09:33] VITALS: BP 127/55
--- NOTE | 2018-08-17 13:16 | NUR ---
Nutrition: Pt assessed for Rehab admit s/p CVA. Albumin 3.9. Eating 100% of Heart Healthy diet. Labs/RX/Hx noted. Wt: 216#. RN stated no nutrition concerns for pt. Low risk.. Will follow weekly.
--- NOTE | 2018-08-17 13:40 | NUR ---
SW met with pt to complete initial assessment, introduce self, and SW role. Pt alert, oriented, pleasant, talkative. Pt lived for a while with her sister until her sister moved back to [place]. Then pt lived with her dtr Dorie and just moved to an apt in [place] an lived there for one night prior to stroke. Pt goal to be able to live in apt alone again at dc but said her dtr would be available to assist if needed. PT came in to work with pt, SW to continue to assess and follow to assist with safe dc planning.
--- NOTE | 2018-08-17 18:55 | NUR ---
AM ASSESSMENT AND VITAL SIGNS COMPLETED DOCUMENTED. PT HAS BEEN PLEASANT AND COOPERATIVE BUT FORGETS TO CALL FOR ASSISTANCE AT TIMES. FALL PRECAUTIONS AND HOURLY ROUNDING CONTINUE. PT IS AMBULATORY WITH A WALKER, STEADY GAIT. NO ACUTE DISTRESS AT THIS TIME.
[2018-08-17 20:09] VITALS: BP 138/50
--- NOTE | 2018-08-18 00:26 | NUR ---
ASSUMED CARE AT 1930. PATIENT RESTING IN BED WATCHING TV. UP WITH SBA, GAIT BELT. REFUSES WALKER. DOES SOME FURNATURE WALKING. TAKES MEDS WHOLE WITH WATER. VOIDS PER TOILET, DOES OWN CARES. STATES SINCE STROKE SHE NEEDS TO WAIT A LITTLE TO COMPLETELY VOID. O2 2L/NC APPLIED AT HS. PATIENT HAS A HX OF SLEEP APNEA AND DOES NOT USE CPAP. TOOK MELATONIN AT HS. BED ALARM ON. CALL LITE IN REACH. HOURLY ROUNDS CONTINUE.
--- NOTE | 2018-08-18 05:23 | NUR ---
SLEPT NOST OF THE SHIFT. DID GET UP ONCE TO VOID. NO C/O PAIN. HOURLY ROUNDS CONTINUE. CALL LITE IN REACH. BED ALARM ON.
[2018-08-18 08:08] VITALS: BP 127/82
--- NOTE | 2018-08-18 18:11 | NUR ---
ASSUMMED CARE OF PT AT 0730, PT ALERT AND ORIENTED, TRANSFERS WITH ASSIST OF 1,GB, AMBULATES TO DININGROOM, WORD FINDING DIFFICULTIES, PT HAS FREQUENT DRY COUGH, MEDICATED PER ORDERS, CXR DONE, DENIES PAIN, TAKING FOOD AND FLUIDS WELL, VOID PER TOILET, PARTICIPATED IN ALL THERAPIES, HOURLY ROUNDING COMPLETED, ASSESSMENT COMPLETE, WILL CONTINUE TO MONITOR.
[2018-08-18 20:08] VITALS: BP 121/58
--- NOTE | 2018-08-19 01:31 | NUR ---
ASSUMED CARE @ 1936-08/18-TUESDAY.SITS SIDE OF BED VISITING W/ DAUGHTER. HOB UP WHEN IN BED.SIDERAILS X2 UP PER-PT'S REQUEST.BED ALARM PUT ON @ 2199.PRN MELATONIN 10 MG ORAL GIVEN @ 2215 PER PT'S REQUEST.HAS DECREASED SENSATION RIGHT UE & RIGHT LE.O2 2L/NC ON @ 2250-FOR NIGHT USE.ON HOURLY ROUNDS.AGENCY DIRECTOR DOING ODD HOUR ROUNDS.
--- NOTE | 2018-08-19 05:30 | NUR ---
SLEPT LATE @ -08/19-SAT & SLEPT GOOD ALL NIGHT.TURNS SELF @ NIGHT.BRP X1 W/ SBA.TOOK ALL BLAS.ICE CREAM HS SNACK.
[2018-08-19 08:00] VITALS: BP 129/56
[2018-08-19 20:00] VITALS: BP 105/51
--- NOTE | 2018-08-20 01:39 | NUR ---
ASSUMED CARE @ 1919-08/19-SAT.AWAKE IN BED W/ DAUGHTER VISITING @ THIS TIME. BED ALARM PUT ON @ 1949.SBA FOR ALL TRANSFERS & TOILETING.DOES NOT USED WALKER.PER PATIENT-USED WALKER ONLY FIRST DAY IN REHAB.PRN MELATONIN 10 MG ORAL GIVEN @ 2139-PER PT'S REQUEST.O2 @ 2L/NC PUT ON PATIENT @ 2140-FOR NIGHT USE.ON HOURLY ROUNDS.YARDER DOING ODD HOUR ROUNDS.
--- NOTE | 2018-08-20 07:31 | NUR ---
SLEPT LATE SINCE 0000-08/20-TUESDAY & SLEPT GOOD ALL NIGHT.TURNS SELF @ NIGHT. ONCE @ 0200-FOUND O2 OFF & PUT BACK.BRP W/ SBA X2.TOOK ALL [place] ICE CREAM HS SNACK.HAD SMALL AMOUNT NOSE BLEEDING @ 0630 AFTER BLOWING NOSE.PATIENT PINCHED NOSE TO PUT PRESSURE.AT 0630-BLEEDING STOPPED.
[2018-08-20 07:50] VITALS: BP 105/43
--- NOTE | 2018-08-20 18:17 | NUR ---
AM ASSESSMENT AND VITAL SIGNS COMPLETED DOCUMENTED. PT SHOWERED THIS AM, AMBULATES WITH A STEADY GAIT AND DENIES DISCOMFORT. PT IS HAVING LESS TROUBLE WITH WORD FINDING AND IS ABLE TO INTERACT WELL WITH OTHERS IN THE DINING ROOM. PT's SON FROM [place] WAS HERE FOR A LONG VISIT TODAY. HOURLY ROUNDING AND FALL PRECAUTIONS IN PLACE.
[2018-08-20 20:00] VITALS: BP 136/48
--- NOTE | 2018-08-21 01:04 | NUR ---
ASSUMED CARE @ 1924-08/20-TUESDAY.AWAKE IN BED W/ HOB UP.ON HER SMART PHONE @ THIS TIME.BED ALARM PUT ON @ 1924.PRN MELATONIN 10 MG ORAL GIVEN @ 2119- PER PT'S REQUEST.LAST BM-08/186-[id number] X2.REQUESTED PRN COLACE & GIVEN @ 2125.PER PATIENT-RESP THERAPIST THREW O2 TUBING SINCE SHE DOES NOT NEED IT ANYMORE FOR NIGHT USE.INFORMED PATIENT THAT IF PATIENT HAS C PAP @ HOME BUT C PAP IS NOT HERE IN HOSP-THAT SHE HAS TO USE O2 @ NIGHT.PATIENT CLAIMS ALSO THAT SHE DOES NOT USE C PAP REGULARLY @ HOME.ON HOURLY ROUNDS.LOCKER ROOM CLERK DOING ODD HOUR ROUNDS.TURNS SELF @ NIGHT.
--- NOTE | 2018-08-21 05:34 | NUR ---
SLEPT LATE SINCE -08/21-TUESDAY.SLEPT GOOD ALL NIGHT.BRP W/ SBA X2.DOES NOT USE WALKER-STEADY.TOOK ALL BLAS.ICE CREAM HS SNACK.NO BM YET FROM [facility] TAKEN @ HS.
[2018-08-21 07:43] VITALS: BP 124/60
--- NOTE | 2018-08-21 16:01 | NUR ---
ASSUMMED CARE OF PT AT 0730, PT ALERT AND ORIENTED, PT TRANSFERS WITH SBA AND GB, PT DENIES PAIN BUT STATES HAS DULLNESS FEELING IN RIGHT ARM AND LEG BUT FEELS IT IS GETTING BETTER. PT STATES HER COUGH IS IMPROVING MEDICATED PER ORDER, NO BM SINCE TUESDAY, WILL OFFER MOM THIS PM, TAKING FOOD AND FLUIDS WELL, NO NAUSEA, AMBULATED TO DININGROOM FOR LUNCH, PARTICIPATED IN ALL THERAPIES, HOURLY ROUNDING COMPLETED, ASSESSMENT COMPLETE WILL CONTINUE TO MONITOR.
[2018-08-21 20:00] VITALS: BP 112/61
--- NOTE | 2018-08-22 00:25 | NUR ---
ASSUMED CARE AT 1930. PATIENT RESTING IN BED. TURNS SELF EASILY IN BED. UP WITH SBA, GAIT BELT. TAK[place] [address]/21. NO C/O PAIN. ICE CREAM AND BERNARDO CRACKERS AT SNACK. WAS STILL WATCHING TV AT [place]. BED ALARM ON, CALL LITE IN REACH. HOURLY ROUNDS CONTINUE.
[2018-08-22 04:24] LABS: HEMATOCRIT 41.2 % (37.0-47.0); HEMOGLOBIN 13.9 gm/dL (12.0-15.0); MCH 27.7 pg (26.0-34.0); MCHC 33.8 g/dL (28.0-37.0); MCV 81.9 fL (80.0-100.0); MPV 8.1 fl. (7.2-11.1); RBC 5.03 mil/uL (4.20-5.00); WBC 11.9 thou/uL (4.0-11.0)
[2018-08-22 04:43] LABS: CALCIUM 8.8 mg/dL (8.5-10.1); CREATININE 1.1 mg/dL (0.6-1.3); MAGNESIUM 2.4 mg/dL (1.8-2.4)
--- NOTE | 2018-08-22 05:31 | NUR ---
SLEPT AFTER MIDNIGHT. NO C/O PAIN. HOURLY ROUNDS CONTINUE. NO RESULTS FROM MOM GIVEN AT THE END OF PREVIOUS DAY SHIFT. TURNS SELF. HOURLY ROUNDS CONTINUE. BED ALARM ON. CALL LITE IN REACH.
[2018-08-22 08:27] VITALS: BP 100/54
--- NOTE | 2018-08-22 16:19 | NUR ---
SW met with pt in preparation for team conference tomorrow and because pt had expressed interest in information about AD/DPOA. SW provided information and pt may want to complete tomorrow. Pt dtr was at a doctor's appt and was going to visit pt later. Pt did not express any other family or person for SW to contact prior to team meeting. Pt said she was hopeful to remain on rehab until Tuesday but was understanding of possible dc plans and SW also discussed HH recommendations and options. SW to continue to follow to assist with safe dc planning.
--- NOTE | 2018-08-22 18:31 | NUR ---
ASSUMMED CARE OF PT AT 0730, PT ALERT AND ORIENTED, PT MOD I IN ROOM THIS AFTERNOON, TOLERATING WELL, DENIES PAIN, SLIGHT WORD FINDING DIFFICULTIES BUT IMPROVING, TAKING FOOD AND FLUIDS WELL, AMBULATED TO DININGROOM FOR MEALS, PARTICIPATED IN ALL THERAPIES, HOURLY ROUNDING COMPLETED, ASSESSMENT COMPLETE, WILL CONTINUE TO MONITOR.
[2018-08-22 20:00] VITALS: BP 122/54
--- NOTE | 2018-08-22 21:10 | NUR ---
SITTING IN A CHAIR HOLDING TISSUES TO NOSE THAT IS BLEEDING. SOME OF BLOOD SWALLOWED. OBSERVED PATIENT SPITTING BLOOD UP. DENIES PAIN. ICE PACK PROVIDED. SNACK PROVIDED. WILL CONTINUE TO MONITOR. PATIENT MODIFIED INDEPENDENT IN ROOM WITHOUT A DEVICE.
--- NOTE | 2018-08-23 05:16 | NUR ---
RESTED SOUNDLY. NO FURTHER NOSE BLEEDS. IS TO BE MODIFIED INDEPENDENT ON THE UNIT TODAY. HOURLY ROUNDING IN PROGRESS.
[2018-08-23 08:17] VITALS: BP 134/59
--- NOTE | 2018-08-23 16:26 | NUR ---
JENNIFER and Dr Frazier met with pt to review team conference summary and plan for pt to dc home alone tomorrow, 08/24 with HH services to follow. Pt was okay with plan. Pt said she would inform her family and someone would be able to provide ride home tomorrow. SW to follow up with pt on HH agency preference and to send referral and orders as needed. Pt does not need a mobility assistive device. No other known needs at this time. JENNIFER to continue to follow to assist with finalizing safe dc plan.
--- NOTE | 2018-08-23 17:47 | NUR ---
ASSUMED CARE AT 0730 PATIENT ALERT/ORIENTED, NO COMPLAINTS OF PAIN THIS SHIFT, MOD I IN ROOM THIS MORNING, MOD I ON UNIT THIS AFTERNOON, TO BE D/C TO HOME TOMORROW. HOURLY ROUNDING COMPLETED. TO DINING ROOM FOR MEALS, PARTICIPATED IN ALL THERAPIES TODAY
[2018-08-23 20:00] VITALS: BP 103/58
[2018-08-24] MEDS ORDERED: BENADRYL25 MG PO (04:22)
--- NOTE | 2018-08-24 05:57 | NUR ---
VISUALIZED SLEEPING AFTER 2300 ON HOURLY ROUNDS. NO C/O PAIN. HOURLY ROUNDS CONTINUE. CALL LITE IN REACH. MOD I CONTINUES IN ROOM.
[2018-08-24 07:00] VITALS: BP 125/56
[2018-08-24 08:00] VITALS: BP 125/56
[2018-08-24 10:14] VITALS: BP 125/56
[2018-08-24 12:25] VITALS: BP 125/56
--- NOTE | 2018-08-24 12:27 | NUR ---
Pt to dc home alone today. Pt preference for HH services through [facility]; SW faxed referral and orders to [facility]. Pt dtr to provide pt ride home. Pt walking without AD. No other dc needs expressed; pt expressed appreciation for her time and experience on inpt rehab.
--- NOTE | 2018-08-24 16:22 | NUR ---
PATIENT DISCHARGED TO HOME, ALL ORDERS REVIEWED WITH PATIENT, ALL QUESTIONS ANSWERED, PRESCRIPTIONS CALLED TO [facility] (LIPITOR, PREDNISONE). ALL GOALS MET, PATIENT INDEPENDENT ON UNIT, NO COMPLAINTS OF PAIN, FINISHED THERAPY THIS SHIFT, LEFT FLOOR WITH FAMILY/STAFF AND ALL BELONGINGS WITH PATIENT.
[2018-08-24 16:26] VITALS: BP 125/56
== END 2018-08-24 16:25 | disposition home health service (06) | DRG 56 ==
LOC: M.REH 14:30
PROVIDERS: Internal Medicine; ADMIT Physical Medicine & Rehabilitation
DX: I69.331 Monoplegia of upper limb following cerebral infarction affecting right dominant side (principal); I69.320 Aphasia following cerebral infarction; I63.9 Cerebral infarction, unspecified; J18.9 Pneumonia, unspecified organism; E89.0 Postprocedural hypothyroidism; K21.9 Gastro-esophageal reflux disease without esophagitis; F17.210 Nicotine dependence, cigarettes, uncomplicated; Z60.2 Problems related to living alone; F32.9 Major depressive disorder, single episode, unspecified; J44.9 Chronic obstructive pulmonary disease, unspecified; G47.33 Obstructive sleep apnea (adult) (pediatric); I12.9 Hypertensive chronic kidney disease with stage 1 through stage 4 chronic kidney disease, or unspecified chronic kidney disease; N18.9 Chronic kidney disease, unspecified; E78.5 Hyperlipidemia, unspecified; D64.9 Anemia, unspecified; G47.419 Narcolepsy without cataplexy; Z79.899 Other long term (current) drug therapy; Z98.41 Cataract extraction status, right eye; Z98.42 Cataract extraction status, left eye; Z90.49 Acquired absence of other specified parts of digestive tract; Z79.82 Long term (current) use of aspirin; Z98.84 Bariatric surgery status

== ENCOUNTER → 2018-09-13 | Outpatient (CLI) | payer MEDICARE, OTHER ==
[~2018-09-13] MED LIST changes: +BENADRYL25 MG PO
== END ==
LOC: M.LAB 15:03
PROVIDERS: Psychiatry & Neurology Neuromuscular Medicine
DX: I63.9 Cerebral infarction, unspecified (principal); G47.30 Sleep apnea, unspecified